=== PATIENT | male | born 1960 | race Caucasian/White ===

== ENCOUNTER → 2021-05-15 07:53 | Outpatient (CLI) | payer OTHER, SELFPAY ==
--- NOTE | ~2021-05-15 | XR_ITS ---
EXAMINATION: XR chest 2V DATE: 05/15/2021 08:20 INDICATION: Cough TECHNIQUE: PA and lateral views of the chest are obtained. COMPARISON: None available FINDINGS: There are small right and small to moderate-sized left pleural effusions. Airspace opacitie s are present in the lung bases. There is no pneumothorax. The cardiomediastinal silhouette is normal . There is a mild diffuse interstitial pattern. There is moderate thoracic spondylosis. IMPRESSION: 1. Small right and small to moderate-sized left pleural effusions. 2. Bibasilar airspace opacities, consistent with atelectasis versus pneumonia. 3. Possible mild pulmonary edema. Reviewed, dictated and finalized at location A.
== END ==
PROVIDERS: PCP Family Medicine; Visit Provider Physician Assistant
DX: R05 Cough (principal); J90 Pleural effusion, not elsewhere classified; R91.8 Other nonspecific abnormal finding of lung field; J81.1 Chronic pulmonary edema
CPT/HCPCS: 71046

== ENCOUNTER → 2021-07-11 08:51 | Outpatient (CLI) | payer OTHER, SELFPAY ==
[2021-07-12 07:19] LABS: SARS-CoV-2 RNA PCR Negative
== END ==
PROVIDERS: PCP Family Medicine; Visit Provider Physician Assistant
DX: R05 Cough (principal); R68.89 Other general symptoms and signs; R06.02 Shortness of breath; Z20.822 Contact with and (suspected) exposure to COVID-19
CPT/HCPCS: C9803; U0003; U0005

== ENCOUNTER 2021-07-12 14:54 | Outpatient (CLI) | payer OTHER, SELFPAY ==
--- NOTE | ~2021-07-12 | XR_ITS ---
XR chest 2V DATE: 07/12/2021 15:24 INDICATION: Wheezing and cough. Shortness of breath with exertion. Bilateral edema. TECHNIQUE: PA and lateral views COMPARISON: 05/20/2021 2 view chest FINDINGS: Bilateral pleural effusions, mild on the right, moderately large on the left. There is biba silar infiltrate/atelectasis, also greater on the left. Heart size is not optimally evaluated because of loss of the left cardiac margin due to the moderatel y large left pleural effusion and left lower lung atelectasis/infiltrate. There is mild pulmonary vascular and minor and greater fissure prominence, suggesting mild congestive changes. Dextroscoliosis and degenerative spurring of the thoracolumbar spine. Osteopenia. IMPRESSION: Bilateral pleural effusions, left greater than right Bibasilar infiltrate and/atelectasis, left greater than right, increased since 05/15/2021 Mild congestive changes, increased since 06/01/2021 Reviewed, dictated and finalized at location B.
[2021-07-12 15:16] LABS: Eosinophils Absolute Auto 0.2 K/mm3 (0-0.3); Hematocrit 35.6 % (42.0-52.0); Hemoglobin 11.9 g/dL (14.0-18.0); Immature Granulocyte Absolute 0.02 K/mm3 (0.00-0.031); Immature Granulocyte Percent A 0.5 % (0-0.5); Immature Platelet Fraction Pct 13.6 % (0.9-11.2); Lymphocytes Absolute Auto 1.29 K/mm3 (0.9-3.2); Lymphocytes Percent Auto 32.1 % (18.3-44.2); Mean Corpuscular HGB Conc 33.4 g/dl (32-36); Mean Corpuscular Hemoglobin 36.3 pg (26-34); Mean Corpuscular Volume 108.5 fl (80-100); Mean Platelet Volume 12.3 fl (7.4-10.4); Monocytes Absolute Auto 0.8 K/mm3 (0.1-0.6); Monocytes Percent Auto 18.9 % (2.6-8.5); Neutrophils Absolute Auto 1.8 K/mm3 (1.3-6.7); Neutrophils Percent Auto 43.5 % (45.5-73.1); Platelet Count Result 122 k/mm3 (150-375); Red Blood Count 3.28 M/mm3 (4.6-6.20); Red Cell Distribution Width 16.2 % (11.5-14.5)
[2021-07-12 15:24] LABS: Alanine Aminotransferase 28 U/L (4-50); Albumin Level 3.7 g/dL (3.5-5.1); Alkaline Phosphatase 203 U/L (38-126); Anion Gap 8 mmol/L (8-16); Aspartate Amino Transferase 52 U/L (17-59); Bilirubin,Total 1.3 mg/dL (0.2-1.3); Blood Urea Nitrogen 13 mg/dL (9-20); Calcium 8.8 mg/dL (8.4-10.2); Carbon Dioxide 26 mmol/L (22-30); Chloride 103 mmol/L (98-107); Estimated Glomerular Filt Rate > 60; Glucose 99 mg/dL (65-110); Potassium 4.2 mmol/L (3.4-5.0); Sodium 137 mmol/L (137-145)
[2021-07-12 15:32] LABS: NT Pro B Type Natriuretic Pept 576 pg/mL (5-100)
== END 2021-07-12 14:55 | disposition home or self-care (01) ==
LOC: ANHLAB 14:56
PROVIDERS: PCP Family Medicine; Visit Provider Physician Assistant
DX: K74.69 Other cirrhosis of liver (principal); D69.6 Thrombocytopenia, unspecified; R06.00 Dyspnea, unspecified; R05 Cough; J90 Pleural effusion, not elsewhere classified; R91.8 Other nonspecific abnormal finding of lung field
CPT/HCPCS: 36415; 71046; 80053; 83880; 85025; 85055

== ENCOUNTER 2021-07-24 12:43 | Outpatient (CLI) | payer OTHER, SELFPAY ==
[2021-07-17 11:11] VITALS: BMI 26.9
[2021-07-24] VITALS (7 sets, daily range): BP systolic 113–125; BP diastolic 77–91; PULSE 65–75; RESP 15–16; O2SAT 97–100
--- NOTE | ~2021-07-24 | XR_ITS ---
EXAMINATION: XR_[id number]_CR EXAM DATE: 07/24/2021 11:28 INDICATION: Left-sided pleural effusion, postthoracentesis. TECHNIQUE: Frontal and lateral projections of the chest obtained and reviewed. Comparison is made to prior examination from 07/12/2021. FINDINGS: There is been significant interval reduction in the amount of left pleural fluid present, now small to moderate pleural effusion remaining. There is left basilar airspace disease probably ate lectasis. There is no evidence of postprocedure pneumothorax. Small right pleural effusion. Heart is within normal size limits. There are no osseous abnormalities identified. IMPRESSION: 1. Small to moderate left pleural effusion, interval improvement. 2. Left basilar atelectasis. 3. Small right pleural effusion. Reviewed, dictated and finalized at location A.
--- NOTE | ~2021-07-24 | US_ITS ---
EXAMINATION: US thoracentesis EXAM DATE: 07/24/2021 11:48 INDICATION: Diagnostic and Therapeutic. Pleural Effusion, abnormal chest x-ray. Shortness of breath. TECHNIQUE: Timeout procedure was performed. I discussed the procedure, its risks and benefits with th e patient. Potential risks discussed included bleeding, infection, and pneumothorax which could poten tially require chest tube. Alternatives were also discussed. The patient understood the risks, was gi mikayla chance to ask questions, and agreed to proceed. The skin was prepped and draped in sterile fashion. 1% lidocaine was used for local anesthesia. Under ultrasound guidance, a 5 Fr catheter with trochar was advanced into the left pleural effusion. Flui d was aspirated. The catheter was removed, and a dressing was applied. There were no immediate compli cations. Patient was sent for postprocedure chest x-ray. FINDINGS: Ultrasound images demonstrate a left pleural effusion adequate in size for performing thoracentesis. IMPRESSION: Successful ultrasound-guided thoracentesis yielding 1000 mL of vidya-colored clear fluid . Reviewed, dictated and finalized at location A. IMPRESSION: Successful ultrasound-guided thoracentesis yielding 1000 mL of amb er-colored clear fluid.
[2021-07-24 09:22] LABS: Basophils Percent Auto 0.3 % (0.2-1.2); Eosinophils Absolute Auto 0.3 K/mm3 (0-0.3); Eosinophils Percent Auto 8.5 % (0-4.4); Hematocrit 35.7 % (42.0-52.0); Immature Granulocyte Absolute 0.03 K/mm3 (0.00-0.031); Immature Granulocyte Percent A 0.8 % (0-0.5); Immature Platelet Fraction Pct 12.9 % (0.9-11.2); Lymphocytes Absolute Auto 1.21 K/mm3 (0.9-3.2); Lymphocytes Percent Auto 32.2 % (18.3-44.2); Mean Corpuscular HGB Conc 33.6 g/dl (32-36); Mean Corpuscular Hemoglobin 36.3 pg (26-34); Mean Corpuscular Volume 107.9 fl (80-100); Mean Platelet Volume 13.7 fl (7.4-10.4); Monocytes Absolute Auto 0.7 K/mm3 (0.1-0.6); Monocytes Percent Auto 17.8 % (2.6-8.5); Neutrophils Absolute Auto 1.5 K/mm3 (1.3-6.7); Neutrophils Percent Auto 40.4 % (45.5-73.1); Platelet Count Result 120 k/mm3 (150-375); Red Blood Count 3.31 M/mm3 (4.6-6.20); Red Cell Distribution Width 15.4 % (11.5-14.5); White Blood Count 3.8 K/mm3 (4.5-10.0)
[2021-07-24 09:32] LABS: INR 1.1; Prothrombin Time 13.8 Seconds (11.1-14.7)
[2021-07-24 10:26] LABS: Alanine Aminotransferase 29 U/L (4-50); Albumin Level 3.7 g/dL (3.5-5.1); Alkaline Phosphatase 167 U/L (38-126); Anion Gap 9 mmol/L (8-16); Aspartate Amino Transferase 52 U/L (17-59); Bilirubin,Total 1.2 mg/dL (0.2-1.3); Blood Urea Nitrogen 15 mg/dL (9-20); Calcium 8.9 mg/dL (8.4-10.2); Carbon Dioxide 27 mmol/L (22-30); Chloride 102 mmol/L (98-107); Estimated CRCL calculation 63 ml/min; Estimated Glomerular Filt Rate > 60; Glucose 104 mg/dL (65-110); Lactate Dehydrogenase 425 U/L (313-618); Potassium 4.3 mmol/L (3.4-5.0); Sodium 138 mmol/L (137-145)
[2021-07-24 12:33] LABS: pH Pleural Fluid 7.497 (7.210-7.500)
[2021-07-24 14:27] LABS: Appearance Pleural Fluid Cloudy (Clear); Color Pleural Fluid Yellow (Colorless); Pleural fluid source Pleural fluid
[2021-07-24 14:37] LABS: Lymphocytes Pleural Fluid 52 %; Macrophages Pleural Fluid 40 %; Monocytes Pleural Fluid 2 %; Neutrophils Pleural Fluid 6 % (0-25)
[2021-07-26 21:01] LABS: Glucose Pleural Fluid 102 mg/dL; LDH Pleural Fluid 86 U/L; Total Protein Pleural Fluid 3.4 g/dL
[2021-07-27 16:21] LABS: Amylase, Pleural Fluid 22 U/L
[2021-07-28 20:31] LABS: Albumin Pleural Fluid 1.6 g/dL
== END 2021-07-24 13:38 | disposition home or self-care (01) ==
PROVIDERS: Radiology Diagnostic Radiology; PCP Family Medicine; Visit Provider Physician Assistant
DX: J90 Pleural effusion, not elsewhere classified (principal)
CPT/HCPCS: 32555; 36415; 80053; 82042; 82150; 82945; 83615; 83986; 84157; 85025; 85055; 85610; 87015; 87070; 87075; 87116; 87205; 87206; 89051

== ENCOUNTER → 2021-08-02 07:45 | Outpatient (CLI) | payer OTHER, SELFPAY ==
--- NOTE | ~2021-08-02 | US_ITS ---
US right upper quadrant INDICATION: Cirrhosis. PROCEDURE: Realtime right upper abdominal ultrasound. COMPARISON: Ultrasound dated 03/27/2019 FINDINGS: The pancreas is normal without focal mass or pancreatic ductal dilation. Liver echotexture is heterogeneous. There is nodular liver surface, compatible with cirrhosis. There is normal direct ional flow in the portal vein. The gallbladder is normal without stones, gallbladder wall thickening or pericholecystic fluid. Comm on bile duct measures 5 mm. No sonographic Trinidad's sign. There is a right pleural effusion. IMPRESSION: 1: Cirrhosis of the liver. 2: Right pleural effusion. Reviewed, dictated and finalized at location B.
== END ==
PROVIDERS: PCP Family Medicine; Visit Provider Internal Medicine Gastroenterology
DX: K74.69 Other cirrhosis of liver (principal); J90 Pleural effusion, not elsewhere classified
CPT/HCPCS: 76705

== ENCOUNTER → 2021-08-09 11:38 | Outpatient (CLI) | payer OTHER, SELFPAY ==
--- NOTE | ~2021-08-09 | CT_ITS ---
EXAMINATION: CT diagnostic chest wo con EXAM DATE: 08/09/2021 12:06 INDICATION: R05.3 - Chronic cough TECHNIQUE: Spiral CT of the chest without contrast. Axial, coronal and sagittal images of the chest were reviewed. Coronal maximum intensity pixel images of chest reviewed. The dose-length product ( DLP) for this examination was 431.28 mGy-cm. The exposure was tailored according to patient size (au to mA exposure control), and iterative reconstruction (ASIR) was used as additional dose reduction te chnique. Correlation is made to CT abdomen pelvis from 2013. FINDINGS: There is large left pleural effusion, and a moderate-sized right-sided pleural effusion. Th e left basilar segments are completely collapsed from compressive atelectasis. There is some addition al fullness to be collapsed left lower lobe, which does raise possibility of an underlying malignancy . No focal nodularity to the pleural surfaces identified. Tracheobronchial tree is patent. There is no mediastinal, hilar or axillary lymphadenopathy. Ther e is no pneumothorax. There is thickened appearing pericardium with some scattered calcifications, ca lcific pericarditis. Heart normal in size. There is moderate coronary arterial calcification, arter ial sclerosis. Nodular liver contour consistent with cirrhosis. Several left upper quadrant nodules appear unchanged going back to CT from 2014, could be splenosis. There is thoracic spondylosis witho ut osteoblastic or osteolytic lesions identified. IMPRESSION: 1. Large left pleural effusion with basilar segmental atelectasis, and some additional fullness in t his region which does raise possibility of underlying left lower lobe lung cancer. 2. Moderate right pleural effusion with adjacent subsegmental atelectasis. 3. Calcific pericarditis. 4. Cirrhosis. RECOMMENDATION: CT chest with contrast. If unable to receive contrast, PET/CT would be an alternative . Reviewed, dictated and finalized at location B. IMPRESSION: 1. Large left pleural effusion with basilar segmental atelectasis, and some ad ditional fullness in this region which does raise possibility of underlying lef t lower lobe lung cancer. 2. Moderate right pleural effusion with adjacent subsegmental atelectasis. 3. Calcific pericarditis. 4. Cirrhosis. RECOMMENDATION: CT chest with contrast. If unable to receive contrast, PET/CT w ould be an alternative.
== END ==
PROVIDERS: PCP Family Medicine; Visit Provider Physician Assistant
DX: R05.3 Chronic cough (principal); J90 Pleural effusion, not elsewhere classified; R91.8 Other nonspecific abnormal finding of lung field; I31.9 Disease of pericardium, unspecified; K74.60 Unspecified cirrhosis of liver
CPT/HCPCS: 71250

== ENCOUNTER → 2021-08-20 10:42 | Outpatient (CLI) | payer OTHER, SELFPAY ==
--- NOTE | ~2021-08-20 | CT_ITS ---
EXAMINATION: CT diagnostic chest w con DATE: 08/20/2021 11:16 INDICATION: Pleural effusion TECHNIQUE: Transaxial computed tomographic images of the chest were obtained after the administration of 75 cc of Omnipaque 350 intravenous contrast. The dose-length product (DLP) was 332.37 mGy-cm. Ite rative reconstruction was used. COMPARISON: 08/09/2021 FINDINGS: There are moderate-sized pleural effusions without significant change, left slightly greate r than right. There is persistent near complete collapse of the left lower lobe. There is dependent a telectasis on the right. No pneumothorax is identified. Pericardial calcifications are again noted. T he heart size is normal. No pathologically enlarged thoracic lymph nodes are identified. Mild bilater al gynecomastia is noted. There is cirrhosis of the liver. Again noted are soft tissue nodules of lef t upper quadrant, stable since 2013. There is moderate thoracic spondylosis. IMPRESSION: 1. Stable moderate-sized pleural effusions, left greater than right. 2. Persistent near complete atelectasis of the left lower lobe without discrete mass identified. 3. Cirrhosis. Reviewed, dictated and finalized at location B. [employer] INTERNS[employer]IP
[2021-08-20 11:01] LABS: Estimated Glomerular Filt Rate > 60
== END ==
PROVIDERS: PCP Family Medicine; Visit Provider Physician Assistant
DX: J90 Pleural effusion, not elsewhere classified (principal); R05.3 Chronic cough; R93.89 Abnormal findings on diagnostic imaging of other specified body structures; J98.11 Atelectasis; K74.60 Unspecified cirrhosis of liver
CPT/HCPCS: 71260; Q9967

== ENCOUNTER → 2021-10-01 11:26 | Outpatient (CLI) | payer OTHER, SELFPAY ==
--- NOTE | ~2021-10-01 | XR_ITS ---
XR chest 2V DATE: 10/01/2021 11:43 INDICATION: Cough TECHNIQUE: Upright 2 view chest radiograph examination COMPARISON: 08/20/2021 CT chest 07/24/2021 AP chest FINDINGS: There is pulmonary vascular congestion and redistribution. There are bilateral pleural effu sions, left greater than right. There is infiltrate and/atelectasis in the mid and particularly lower lung zones. Diffuse osteopenia. IMPRESSION: Increased congestive changes and bilateral pleural effusions and bilateral predominately lower lung infiltrates since 07/24/2021 Reviewed, dictated and finalized at location B. Y DIRECTOR IMPRESSION: Increased congestive changes and bilateral pleural effusions and bi lateral predominately lower lung infiltrates since 07/24/2021
== END ==
PROVIDERS: PCP Family Medicine; Visit Provider Family Medicine
DX: R05.9 Cough, unspecified (principal); M85.88 Other specified disorders of bone density and structure, other site
CPT/HCPCS: 71046

== ENCOUNTER 2021-11-24 08:06 | Emergency (ER) | payer MEDICARE, OTHER, SELFPAY ==
[2021-11-24] VITALS (10 sets, daily range): BP systolic 101–135; BP diastolic 75–91; PULSE 82–108; RESP 17–96; TEMP 36.7; O2SAT 94–99
--- NOTE | ~2021-11-24 | XR_ITS ---
EXAMINATION: [id number]_[id number]_CR INDICATION: Left pleural effusion postthoracentesis TECHNIQUE: AP view of the chest is obtained. COMPARISON: 0840 hours FINDINGS: There is interval decrease in size of a now small left pleural effusion postthoracentesis. No pneumothorax is identified. A moderate size right pleural effusion is unchanged. The cardiomediast inal silhouette is stable. Bibasilar airspace opacities persist, consistent with atelectasis. IMPRESSION: 1. Decreased left pleural effusion postthoracentesis without pleural effusion. 2. Stable moderate size right pleural effusion. Reviewed, dictated and finalized at location A. OM BUFFER
--- NOTE | ~2021-11-24 | XR_ITS ---
EXAMINATION: XR chest 1V portable INDICATION: Cough TECHNIQUE: Portable AP chest at 0840 hours COMPARISON: 10/01/2021 FINDINGS: There are small, chronic pleural effusions with slight increase on the right. The cardiomed iastinal silhouette is normal. A mild diffuse interstitial pattern is present in the thorax. Minimal airspace opacities are present in the lung bases. IMPRESSION: 1. Small chronic pleural effusions with slight increase on the right. 2. Diffuse interstitial opacities, likely pulmonary edema. 3. Bibasilar airspace opacities, likely atelectasis. Reviewed, dictated and finalized at location A. MANAGEMENT SUPERVISOR
--- NOTE | ~2021-11-24 | CT_ITS ---
EXAMINATION: CTA chest PE protocol DATE: 11/24/2021 10:17 INDICATION: Shortness of breath TECHNIQUE: Computed tomography angiography (CTA) of the chest was performed with 100 mL Omnipaque-350 intravenous contrast timed to evaluate the pulmonary arteries. Coronal maximum intensity projection 3D-reconstructions were created by the technologist. The dose-length product (DLP) was 459.21 mGy-cm. Automated exposure control and iterative reconstruction technique were employed. COMPARISON: 08/20/2021 FINDINGS: The pulmonary arteries are well-opacified. No pulmonary embolism is identified. The inferio r most portions of the pleural spaces are not imaged. There are moderate-sized pleural effusions with passive dependent atelectasis. A more focal area of chronic atelectasis is noted anteriorly in the l eft lower lobe. There is persistent near complete atelectasis of the left lower lobe. There is no pne umothorax. No pathologically enlarged thoracic lymph nodes are identified. The heart size is normal. Mild bilateral gynecomastia is noted. There is mild thoracic spondylosis. There is nodularity of the liver surface, consistent with cirrhosis IMPRESSION: 1. Moderate-sized pleural effusions with areas of chronic atelectasis. Reviewed, dictated and finalized at location A. G MANAGER
--- NOTE | ~2021-11-24 | US_ITS ---
EXAMINATION: US thoracentesis DATE: 11/24/2021 13:08 INDICATION: Left pleural effusion TECHNIQUE: The procedure and its risks and benefits were discussed with the patient and his spouse. P otential risks discussed included bleeding, infection, and pneumothorax. The patient understood the r isks and agreed to proceed. The skin was prepped and draped in sterile fashion. 1% lidocaine was used for local anesthesia. Under ultrasound guidance, a 5 Fr catheter with trochar was advanced into the left pleural effusion. Fluid was aspirated. The catheter was removed, and a dressing was applied. The re were no immediate complications. FINDINGS: Ultrasound images demonstrate a left pleural effusion and the catheter within the fluid. IMPRESSION: 1. Successful ultrasound-guided thoracentesis yielding 1000 mL of clear yellow fluid. Reviewed, dictated and finalized at location A. S ANALYTICS MANAGER
--- NOTE | 2021-11-24 08:11 | ECG_ITS ---
Measurements Intervals [place] Rate: 108 P: 49 AR: 117 QRS: 38 QRSD: 78 T: 196 QT: 323 QTc: 434 Interpretive Statements SINUS TACHYCARDIA WITH SHORT AR INTERVAL LOW QRS VOLTAGE IN PRECORDIAL LEADS BORDERLINE ST-T WAVE ABNORMALITY- DIFFUSE LEADS BASELINE ARTIFACT- I, II, III, AVR, AVL, AVF, V1-V6 BORDERLINE ECG Electronically Signed On 11-24-2021 16:06:39 LOCAL BULK DRIVER by Michael Rodríguez D.O.
--- NOTE | 2021-11-24 08:19 | ED.SOB ---
HPI - SOB/Dyspnea General Chief Complaint: Shortness of Breath/Dyspnea Stated Complaint: SOB History of Present Illness HPI Narrative: Patient presents emergency room from home via EMS for shortness of breath. History is per the patient's as well as the patient is a patient does have a history of severe dementia patient was feeling more short of breath last night states that he was up walking around because he stated that he could not catch his breath states he was grabbing in his chest but did not complain of any pain patient does have a history of ongoing shortness of breath over the past 5 to 6 months has a history of pleural effusions with thoracentesis back in June he recently was seen by cardiology Dr. 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 Patient is scheduled to be going into memory care next week and then be placed on hospice following that secondary to his dementia he denies any fevers or chills chest pain abdominal pain nausea vomiting or any other symptoms Related Data Home Medications Medication Instructions Recorded Confirmed donepezil 10 mg tablet 5 mg PO ONCE 09/24/19 11/24/21 memantine 10 mg tablet 10 mg PO BID 11/29/19 11/24/21 escitalopram oxalate 20 mg tablet 20 mg PO DAILY 04/02/21 11/24/21 Allergies Allergy/AdvReac Type Severity Reaction Status Date / Time No Known Allergies Allergy Verified 11/24/21 08:15 Review of Systems Review of Systems: Gen.: Denies fevers or chills ENT: Denies congestion Respiratory: See HPI CV: Denies chest pain or palpitations GI: Denies abdominal pain nausea, emesis or diarrhea Musculoskeletal: Denies back pain or muscle pain Neuro: Denies numbness, tingling, weakness or focal weakness Skin: Denies rash Except as documented, all other systems reviewed and negative [facility] Past Medical History Medical History (Updated 11/24/21 @ 15:17 by Ra Reed DO) Cryptogenic cirrhosis Early onset Alzheimer's dementia without behavioral disturbance IFG (impaired fasting glucose) Secondary esophageal varices without bleeding Subclinical hypothyroidism Thrombocytopenia Family History Family History Father Family history of renal cell carcinoma Social History Social History Social History: Smoking status: Current every day smoker Tobacco type: smokeless tobacco Smokeless tobacco user: chewing tobacco Second hand tobacco smoke exposure: No Additional smoking assessment comments: Pt still chews tobacco. Alcohol intake: never Alcohol use details: rarely Substance use: never Substance use type: does not use Gender identity (if verbalized by the patient): Male Sexual Orientation (if Verbalized by the Patient): Straight or Heterosexual Exam Narrative: APPEARANCE: No acute distress, nontoxic, resting in bed EYES: EOMI HEENT: Normocephalic, atraumatic, OMM RESPIRATORY: No respiratory distress Clear to auscultation bilaterally with no rhonchi wheezing or rales. CARDIOVASCULAR: Regular rate and rhythm without murmurs rubs or gallops. ABDOMINAL: Soft, nontender, nondistended, no rebound or guarding MUSCULOSKELETAl: Moves all extremities. No clubbing, cyanosis or edema. NEURO: Awake and alert. Following commands, speech normal, no focal deficits SKIN:: Warm, dry. No rashes lesions or abrasions PSYCHIATRIC: Normal affect/mood, Course Course Emergency Course: Reviewed old records patient evaluated recently by radiology with restrictive pericarditis had requested no surgical interventions the patient is scheduled to go on hospice after moving into memory care next week : Discussed with Dr. Schultz presentation work-up at this time he recommends thoracentesis indications feeling
[2021-11-24 08:21] LABS: Basophils Percent Auto 0.2 % (0.2-1.2); Eosinophils Absolute Auto 0.1 K/mm3 (0-0.3); Eosinophils Percent Auto 2.3 % (0-4.4); Hemoglobin 10.2 g/dL (14.0-18.0); Immature Granulocyte Absolute 0.04 K/mm3 (0.00-0.031); Immature Granulocyte Percent A 0.8 % (0-0.5); Immature Platelet Fraction Pct 10.8 % (0.9-11.2); Lymphocytes Absolute Auto 1.22 K/mm3 (0.9-3.2); Lymphocytes Percent Auto 25.2 % (18.3-44.2); Mean Corpuscular Hemoglobin 36.7 pg (26-34); Mean Corpuscular Volume 107.9 fl (80-100); Monocytes Absolute Auto 0.9 K/mm3 (0.1-0.6); Monocytes Percent Auto 19.2 % (2.6-8.5); Neutrophils Absolute Auto 2.5 K/mm3 (1.3-6.7); Neutrophils Percent Auto 52.3 % (45.5-73.1); Platelet Count Result 142 k/mm3 (150-375); Red Blood Count 2.78 M/mm3 (4.6-6.20); Red Cell Distribution Width 17.9 % (11.5-14.5); White Blood Count 4.8 K/mm3 (4.5-10.0)
[2021-11-24 08:36] LABS: Alanine Aminotransferase 34 U/L (4-50); Albumin Level 3.2 g/dL (3.5-5.1); Alkaline Phosphatase 215 U/L (38-126); Anion Gap 6 mmol/L (8-16); Aspartate Amino Transferase 60 U/L (17-59); Bilirubin,Total 1.9 mg/dL (0.2-1.3); Blood Urea Nitrogen 19 mg/dL (9-20); Calcium 8.8 mg/dL (8.4-10.2); Carbon Dioxide 25 mmol/L (22-30); Chloride 104 mmol/L (98-107); Estimated CRCL calculation 61 ml/min; Estimated Glomerular Filt Rate > 60; Glucose 164 mg/dL (65-110); Potassium 4.1 mmol/L (3.4-5.0); Sodium 135 mmol/L (137-145)
[2021-11-24 08:53] LABS: INR 1.4; Prothrombin Time 16.2 Seconds (11.1-14.7)
[2021-11-24 08:54] LABS: Partial Thromboplastin Time 36.6 SECONDS (22.3-36.8)
[2021-11-24 08:58] LABS: NT Pro B Type Natriuretic Pept 877 pg/mL (5-100); Troponin I < 0.012 ng/mL (0.000-0.034)
--- NOTE | 2021-11-24 12:43 | PC.NURSE ---
pt returned from us after having thoracentesis done. 1000ml removed. pt to stay observation for 2 hrs npo
== END 2021-11-24 15:32 | disposition home or self-care (01) ==
PROVIDERS: Emergency Provider Emergency Medicine; PCP Family Medicine
DX: J90 Pleural effusion, not elsewhere classified (principal); R06.00 Dyspnea, unspecified; G30.0 Alzheimer's disease with early onset; F02.80 Dementia in other diseases classified elsewhere, unspecified severity, without behavioral disturbance, psychotic disturbance, mood disturbance, and anxiety; K74.69 Other cirrhosis of liver; E03.9 Hypothyroidism, unspecified; F17.220 Nicotine dependence, chewing tobacco, uncomplicated; R00.0 Tachycardia, unspecified; R94.31 Abnormal electrocardiogram [ECG] [EKG]
CPT/HCPCS: 32555; 36415; 71045; 71275; 80053; 83880; 84484; 85025; 85055; 85610; 85730; 93005; 99284; Q9967

== ENCOUNTER 2021-12-19 11:29 | Emergency (ER) | payer OTHER, MEDICARE, SELFPAY ==
--- NOTE | ~2021-12-19 | XR_ITS ---
EXAMINATION: XR chest 1V portable INDICATION: Cough and shortness of breath TECHNIQUE: Portable AP chest at 1239 hours COMPARISON: 11/24/2021 FINDINGS: There are moderate-sized pleural effusions. No pneumothorax is identified. There is atelect asis of the mid and lower lung zones. The heart size is normal. There is no pneumothorax. IMPRESSION: 1. Moderate-sized pleural effusions with passive atelectasis. Reviewed, dictated and finalized at location B. FOLIO SPECIALIST
--- NOTE | ~2021-12-19 | CT_ITS ---
EXAMINATION:CT diagnostic chest wo con DATE: 12/19/2021 12:37 INDICATION: Shortness of breath. TECHNIQUE: Computed tomography (CT) of the chest was performed without intravenous contrast. Automate d exposure control and iterative reconstruction technique were employed. The dose-length product (DLP ) was 437.78 mGy-cm. COMPARISON: Chest CT 11/24/2021, 08/09/21 FINDINGS: There are moderate-sized bilateral pleural effusions with mild pleural thickening on the le ft. There is dependent atelectasis in right lung. There are masses in left upper lobe and left lower lobe abutting the pleura, consistent with rounded atelectasis. The heart size is normal. There are co ronary artery calcifications. There is pericardial thickening with pericardial calcifications. Gyneco mastia is noted. The liver demonstrates a nodular surface contour, consistent with cirrhosis. There i s mild thoracic spondylosis. There is severe cervical spondylosis. IMPRESSION: 1. Moderate-sized bilateral pleural effusions. 2. Cirrhosis of the liver. Reviewed, dictated and finalized at location A. OWGRAPH SCALE OPERATOR
[2021-12-19 11:51] VITALS: BP 109/81; PULSE 98; RESP 16; TEMP 36.7; O2SAT 95
--- NOTE | 2021-12-19 12:03 | ECG_ITS ---
Measurements Intervals [place] Rate: 96 P: 35 NH: 104 QRS: 25 QRSD: 76 T: 26 QT: 352 QTc: 447 Interpretive Statements SINUS RHYTHM WITH SHORT NH INTERVAL POSSIBLE LEFT ATRIAL ENLARGEMENT [-0.1mV P-WAVE IN V1/V2] LOW QRS VOLTAGE IN PRECORDIAL LEADS [QRS DEFLECTION < 1.0 mV IN CHEST LEADS] NONSPECIFIC T-WAVE ABNORMALITY BORDERLINE ECG COMPARED TO ECG 11/24/2021 08:07:16 HEART RATE HAS DECREASED Electronically Signed On 12-19-2021 13:33:03 DIRECTOR OF EMPLOYEE DEVELOPMENT by Alex Ruby M.D.
[2021-12-19 12:15] LABS: Basophils Percent Auto 0.2 % (0.2-1.2); Eosinophils Absolute Auto 0.2 K/mm3 (0-0.3); Eosinophils Percent Auto 5.7 % (0-4.4); Hematocrit 28.8 % (42.0-52.0); Hemoglobin 9.6 g/dL (14.0-18.0); Immature Granulocyte Absolute 0.03 K/mm3 (0.00-0.031); Immature Granulocyte Percent A 0.7 % (0-0.5); Immature Platelet Fraction Pct 12.2 % (0.9-11.2); Lymphocytes Absolute Auto 1.04 K/mm3 (0.9-3.2); Lymphocytes Percent Auto 25.9 % (18.3-44.2); Mean Corpuscular HGB Conc 33.3 g/dl (32-36); Mean Corpuscular Hemoglobin 35.7 pg (26-34); Mean Corpuscular Volume 107.1 fl (80-100); Monocytes Absolute Auto 0.8 K/mm3 (0.1-0.6); Monocytes Percent Auto 19.2 % (2.6-8.5); Neutrophils Absolute Auto 1.9 K/mm3 (1.3-6.7); Neutrophils Percent Auto 48.3 % (45.5-73.1); Platelet Count Result 109 k/mm3 (150-375); Red Blood Count 2.69 M/mm3 (4.6-6.20)
--- NOTE | 2021-12-19 12:20 | ED.RECABL ---
HPI - Recheck/Abnormal Lab/Rx General Chief Complaint: Recheck/Abnormal Lab/Rx Stated Complaint: Sent by PCP for chest CT. Time Seen by Provider: 12/19/21 12:07 Source: patient Limitations: no limitations History of Present Illness HPI narrative: Patient is a 61-year-old male sent here by his doctor to get a CT of his chest after an abnormal chest x-ray results today for possible TB. According to the , patient had a quant gold tb S that was indeterminate, results came in yesterday so chest x-ray was ordered to rule out TB by his PCP. The TB test was ordered so patient can get into hospice care facility. states that patient has had multiple CT scans most recently was 2 weeks ago and it showed pleural effusion which he has had for quite some time now, had thoracentesis done few months ago. Patient is under hospice due to severe dementia and chronic pleural effusion. Related Data Home Medications Medication Instructions Recorded Confirmed acetaminophen [Tylenol] 650 mg PO Q6H 12/19/21 guaifenesin 200 mg PO Q6H PRN 12/19/21 lorazepam See Rx Instructions .ROUTE 12/19/21 12/19/21 .COMPLEX PRN morphine concentrate 10 mg PO Q4H PRN 12/19/21 polyethylene glycol 3350 [Miralax] 17 g PO DAILY 12/19/21 trazodone 100 mg PO HS 12/19/21 Allergies Allergy/AdvReac Type Severity Reaction Status Date / Time No Known Allergies Allergy Verified 11/24/21 08:15 Review of Systems Review of Systems: ROS unobtainable: Yes other (Dementia) [facility] Past Medical History Medical History (Updated 12/19/21 @ 13:08 by Ra Hansen MD) Cryptogenic cirrhosis Early onset Alzheimer's dementia without behavioral disturbance IFG (impaired fasting glucose) Secondary esophageal varices without bleeding Subclinical hypothyroidism Thrombocytopenia Family History Family History Father Family history of renal cell carcinoma Social History Social History Social History: Smoking status: Current every day smoker Tobacco type: smokeless tobacco Smokeless tobacco user: chewing tobacco Second hand tobacco smoke exposure: No Additional smoking assessment comments: Pt still chews tobacco. Alcohol intake: never Alcohol use details: rarely Substance use: never Substance use type: does not use Gender identity (if verbalized by the patient): Male Sexual Orientation (if Verbalized by the Patient): Straight or Heterosexual Exam Const: General: cooperative, comfortable, no acute distress, well developed, alert and awake; No confusion Orientation/consciousness: oriented to person Limitations: no limitations Other: Frail HENMT: Head: normal to inspection, normocephalic and atraumatic Ears: hearing grossly normal bilaterally, TM normal on the right and TM normal on the left General nose exam: Normal external nose present, Normal nares present and No nasal discharge present Face and sinus: normal facial exam Mouth: Yes Normal oral and palatal mucosa present, Yes lip normal, Yes tongue normal and Yes oropharynx normal Throat: posterior oropharynx normal, tonsils normal and uvula midline Eyes: General: appearance normal, both eyes and all related structures Pupils: Equal, round and reactive pupils present EOM: EOMs intact bilaterally Neck: Neck: normal visual inspection, full ROM, no lymphadenopathy and no meningeal signs Chest: Chest palpation & inspection: normal inspection of the chest Resp: Effort & Inspection: normal respiratory effort, able to speak in complete sentences, no respiratory distress and not tachypneic Auscultation: clear to auscultation bilaterally, no crackles, no rales, no rhonchi and no wheezes Cardio: Rate: regular rate Rhythm: regular rhythm GI: Inspection: normal to inspection GI Palp: No abdominal tenderness, Yes Soft to palpation, No Tenderness to palpation present
[2021-12-19 12:33] LABS: Alanine Aminotransferase 33 U/L (4-50); Alkaline Phosphatase 219 U/L (38-126); Anion Gap 6 mmol/L (8-16); Aspartate Amino Transferase 68 U/L (17-59); Bilirubin,Total 1.4 mg/dL (0.2-1.3); Blood Urea Nitrogen 17 mg/dL (9-20); Calcium 8.2 mg/dL (8.4-10.2); Carbon Dioxide 31 mmol/L (22-30); Chloride 98 mmol/L (98-107); Estimated Glomerular Filt Rate > 60; Glucose 142 mg/dL (65-110); Potassium 3.9 mmol/L (3.4-5.0); Sodium 135 mmol/L (137-145)
== END 2021-12-19 13:28 | disposition home or self-care (01) ==
PROVIDERS: Emergency Medicine; Emergency Provider Emergency Medicine; PCP Family Medicine
DX: J90 Pleural effusion, not elsewhere classified (principal); F17.210 Nicotine dependence, cigarettes, uncomplicated; K74.69 Other cirrhosis of liver; G30.0 Alzheimer's disease with early onset; F02.80 Dementia in other diseases classified elsewhere, unspecified severity, without behavioral disturbance, psychotic disturbance, mood disturbance, and anxiety
CPT/HCPCS: 36415; 71045; 71250; 80053; 85025; 85055; 93005; 99284